=== PATIENT | male | born 1950 | race African-American/Black ===

== ENCOUNTER 2018-10-19 09:07 | Emergency (ER) | payer OTHER ==
[~2018-10-19] VITALS: Ht 182.9 cm; Wt 124.7 kg
--- NOTE | ~2018-10-19 | EKG ---
[address] [address] ELECTROCARDIOGRAM REPORT Name: ELLIOTTELIZABET Chelo [id number] Admission: 10/19/18 Attend Phys: Discharge: 10/19/18 Date of : 46 Report #: [id number] THIS REPORT FOR: //name// [facility] ED Test Date: 2018-10-19 Test Time: 09:24:50 Pat Name: ELIZABET GALLAGHER Department: Room: Gender: Upper Inspector: : 1950 Requested By: Frederic Cooley Order Number: [id number] MD: Kraig Suarez Measurements Intervals [place] Rate: 55 P: 9 [place]: 171 QRS: -11 QRSD: 97 T: -3 QT: 418 QTc: 400 Interpretive Statements Sinus rhythm Compared to ECG 05/08/2016 09:09:52 T-wave abnormality now present Electronically Signed On 10-19-2018 20:47:39 PLATE CUTTER by Kraig Suarez [email or web address] <ELECTRONICALLY SIGNED> By: Kraig Suarez MD 10/19/182046 3 3 Kraig Suarez MD /STEVEN
[~2018-10-19 09:07] MED LIST: ALDACTONE25 MG PO; ALLOPURINOL 30300 M2 PO; ASPIRIN325 PO; AUGMENTIN 875875 MG PO; CLARITIN10 MG PO; CORICIDIN HBP1 EAC2 PO; DILTIAZEM 24HR180 M2 PO; FIBER LAXATIVE660 GM; FML 0.1% 10ML10 M1 OPHTHALMIC; GLUCOPHAGE XR500 M1 PO; GLUCOPHAGE1000 MG PO; HYDROCODONE-APA1 TA1 PO; KEFLEX500 MG PO; KLOR-CON 1010 MEQ PO; LEVAQUIN 500 M500 M2 PO; LISINOPRIL PO; LISINOPRIL20 MG PO; MEDROL4 MG PO; METHYLPREDNISOLO4 MG PO; MUCINEX TA600 MG/TA2 PO; NEURONTIN 300300 M1 PO; NORCO 5-325 TA1 EACH PO; NORVASC10 MG PO; PERCOCET 10-321 EACH PO; POTASSIUM GLUCO99 M2 PO; POTASSIUM PO; PRAVACHOL20 MG PO; PREDNISONE 10 M10 MG; PRINIVIL40 MG PO; PROTONIX40 M2 PO; ROBAXIN500 MG PO; SYMBICORT160 MCG/4. INH; TUSSIONEX PENN473 ML PO; UNICOMPLEX M TA1 TA1 PO; VALIUM2 MG PO; VALIUM5 MG PO; VITAMIN D1000 UNI1 PO; VITAMINC500 PO
[2018-10-19 11:33] VITALS: BP 117/74
== END 2018-10-19 11:38 | disposition home or self-care (01) ==
LOC: ER 09:07
DX: S01.01XA Laceration without foreign body of scalp, initial encounter (principal); S50.811A Abrasion of right forearm, initial encounter; Z88.8 Allergy status to other drugs, medicaments and biological substances; W10.9XXA Fall (on) (from) unspecified stairs and steps, initial encounter; Y92.89 Other specified places as the place of occurrence of the external cause; Y93.89 Activity, other specified; Y99.8 Other external cause status

== ENCOUNTER 2019-06-22 07:26 | Emergency (ER) | payer OTHER ==
[~2019-06-22] VITALS: Ht 182.9 cm; Wt 120.2 kg
[2019-06-22 08:00] LABS: ABSOLUTE NEUTROPHILS 3.9 thou/uL (1.4-8.2); BASOPHILS 0.6 % (0.0-2.0); HEMATOCRIT 34.3 % (42.0-52.0); HEMOGLOBIN 11.5 gm/dL (14.0-18.0); LYMPHOCYTES 21.4 % (24.0-44.0); MCH 31.4 pg (26.0-34.0); MCHC 33.4 g/dL (28.0-37.0); MCV 93.8 fL (80.0-100.0); MONOCYTES 10.4 % (1.0-8.0); PLATELET COUNT 270 thou/uL (150-400); POLYS 64.6 % (36.0-66.0); RBC 3.66 mil/uL (4.50-6.00); RDW 15.1 % (10.5-14.5); WBC 6.1 thou/uL (4.0-11.0)
[2019-06-22 08:15] LABS: ANION GAP 12 mmol/L (7-16); BUN 60 mg/dL (7-18); CALCIUM 10.1 mg/dL (8.5-10.1); CHLORIDE 102 mmol/L (98-107); CO2 20 mmol/L (21-32); CREATININE 2.1 mg/dL (0.7-1.3); GLUCOSE 142 mg/dL (74-106); POTASSIUM 5.1 mmol/L (3.5-5.1); SODIUM 134 mmol/L (136-145)
[2019-06-22 08:23] LABS: ALBUMIN 3.6 g/dL (3.4-5.0); MAGNESIUM 2.1 mg/dL (1.8-2.4); SGOT 22 U/L (15-37); SGPT 27 U/L (30-65); TOTAL BILIRUBIN 0.2 mg/dL (<0.1-1.0); TOTAL PROTEIN 8.3 g/dL (6.4-8.2); TROPONIN-I <0.06 ng/mL (<0.06)
[2019-06-22] MEDS ORDERED: LEVAQUIN 750 M750 MG PO (08:34)
[2019-06-22 10:32] VITALS: BP 132/69
--- NOTE | 2019-06-23 18:17 | EKG ---
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: [facility] : 1950 Requested By: Saul Rodriguez Order Number: [id number] MD: Ruben Fajardo Measurements Intervals [place] Rate: 54 P: 6 [place]: 168 QRS: -23 QRSD: 94 T: -5 QT: 405 QTc: 384 Interpretive Statements Sinus arrhythmia Borderline left axis deviation Borderline T abnormalities, inferior leads Compared to ECG 10/19/2018 09:24:50 No significant change was found Electronically Signed On 06-23-2019 18:17:32 CDT by Ruben Fajardo [email or web address] ��������������������������������������������� <ELECTRONICALLY SIGNED> ���������������������������������������� By: Ruben Fajardo MD, [facility] ��������������������������������������������� 06/23/19 1817 2 2 Ruben Fajardo MD, [facility] /EPI
== END 2019-06-22 10:33 | disposition home or self-care (01) ==
LOC: ER 07:26
PROVIDERS: Emergency Medicine
DX: R06.02 Shortness of breath (principal); R00.1 Bradycardia, unspecified; R42 Dizziness and giddiness; E11.9 Type 2 diabetes mellitus without complications; I10 Essential (primary) hypertension; E78.00 Pure hypercholesterolemia, unspecified